=== PATIENT | female | born 1955 | race Hispanic/Latino ===

== ENCOUNTER 2022-09-03 08:36 | Emergency (ER) | payer BC, OTHER ==
[~2022-09-03] VITALS: Ht 162.6 cm; Wt 79.8 kg
[~2022-09-03 08:36] MED LIST: FERROUS SULFAT325 MG PO; LEVOTHYROXINE50 MCG PO; OMEPRAZOLE40 MG PO
[2022-09-03] MEDS ORDERED: XOFLUZA80 MG PO (10:19)
== END 2022-09-03 10:24 | disposition home or self-care (01) ==
LOC: ER 08:37
DX: R05.9 Cough, unspecified (principal); J10.1 Influenza due to other identified influenza virus with other respiratory manifestations; R07.89 Other chest pain; R09.89 Other specified symptoms and signs involving the circulatory and respiratory systems
CPT/HCPCS: 71101; 87400; 99282